=== PATIENT | female | born 1965 | race Caucasian/White ===

== ENCOUNTER 2021-03-18 13:59 | Outpatient (RCR) | payer OTHER, SELFPAY ==
[2021-03-18 14:06] VITALS: BP 170/90; PULSE 80; TEMP 36.5; O2SAT 98
[2021-03-18] MEDS: ACETAMINOPHEN 325 MG TABLET 650 MG PO (14:12)
[2021-03-18] MEDS: FAMOTIDINE 20 MG TABLET PO (14:13)
[2021-03-18] MEDS: diphenhydrAMINE HCl CAP 25 MG CAPSULE PO (14:13)
[2021-03-18 15:45] VITALS: BP 149/81
== END 2021-03-18 16:00 ==
LOC: AMCINF 13:59
PROVIDERS: PCP Physician Assistant Medical; Referring Provider Physician Assistant Medical; Visit Provider Internal Medicine Hematology & Oncology
DX: U07.1 COVID-19 (principal); I10 Essential (primary) hypertension; D84.9 Immunodeficiency, unspecified
CPT/HCPCS: A9270; M0247; Q0247